=== PATIENT | female | born 1970 | race African-American/Black ===

== ENCOUNTER 2016-10-22 17:22 | Emergency (ER) | payer OTHER ==
[2016-10-22] MEDS ORDERED: Ketorolac Tromethamine 30 MG/ML VIAL ONE (17:41)
[2016-10-22 17:56] LABS: #Basophils 0.1 thou/uL (0.0-0.2); #Eosinphils 0.2 thou/uL (0.0-0.7); #Lymphocytes 2.5 thou/uL (1.20-3.40); #Monocytes 0.7 thou/uL (0.11-0.59); #Neutrophils 5.7 thou/uL (1.40-6.50); %Basophils 1.3 % (0.0-1.0); %Eosinophils 2.1 % (0.0-10.0); %Monocytes 7.4 % (0.0-10.0); Hematocrit 41.4 % (36.0-47.0); Mean Platelet Volume 7.2 fL (7.4-10.4); Red Blood Cell (RBC) Count 4.78 mill/uL (4.20-5.40); White Blood Cell (WBC) Count 9.2 thou/uL (4.8-10.8)
[2016-10-22 18:13] LABS: ALT (SGPT) 18 U/L (0-55); AST (SGOT) 18 U/L (5-34); Alkaline Phosphatase 64 U/L (40-150); Anion Gap 12 mmol/L (10-20); BUN (Urea Nitrogen) 7 mg/dL (7.0-18.7); Bilirubin, Total 0.3 mg/dL (0.2-1.2); Calc. Creatinine Clearance 0 mL/min (70-130); Calcium 9.4 mg/dL (7.8-10.44); Carbon Dioxide 25 mmol/L (22-29); Chloride 106 mmol/L (98-107); Estimated GFR-MDRD Greater than 90; Globulin 2.5 g/dL (2.4-3.5); Protein, Total 6.2 g/dL (6.0-8.3)
[2016-10-22] MEDS ORDERED: Potassium Chloride 20 MEQ TAB ONE (18:21)
[2016-10-22 18:32] LABS: Bilirubin Negative (Negative); Blood, Urine Negative (Negative); Glucose, Urine (Dipstick) Negative (Negative); Ketone, Urine Negative (Negative); Nitrite Negative (Negative); Protein, Urine (Dipstick) Negative (Neg-Trace); Urobilinogen 0.2 mg/dL (0.2-1.0)
== END 2016-10-22 18:40 | disposition home or self-care (01) ==
LOC: BURERS 17:22
DX: R00.2 Palpitations (principal); M25.512 Pain in left shoulder; G89.29 Other chronic pain; I10 Essential (primary) hypertension; K21.9 Gastro-esophageal reflux disease without esophagitis; J45.909 Unspecified asthma, uncomplicated; F41.9 Anxiety disorder, unspecified; F32.9 Major depressive disorder, single episode, unspecified; F17.210 Nicotine dependence, cigarettes, uncomplicated; Z79.899 Other long term (current) drug therapy
CPT/HCPCS: 80053; 81003; 84443; 85025; 96374; J1885

== ENCOUNTER 2016-10-30 06:38 | Emergency (ER) | payer OTHER | END 2016-10-30 07:02 | disposition home or self-care (01) | LOC: BURERS 06:38 | DX: G44.209 Tension-type headache, unspecified, not intractable (principal); I10 Essential (primary) hypertension; F17.210 Nicotine dependence, cigarettes, uncomplicated | CPT/HCPCS: 99283 ==

== ENCOUNTER 2016-12-18 12:17 | Emergency (ER) | payer OTHER ==
[2016-12-18] MEDS ORDERED: Ketorolac Tromethamine 60 MG/2 ML VIAL ONE (12:34)
== END 2016-12-18 12:48 | disposition home or self-care (01) ==
LOC: BURERS 12:17
DX: S76.911A Strain of unspecified muscles, fascia and tendons at thigh level, right thigh, initial encounter (principal); I10 Essential (primary) hypertension; J45.909 Unspecified asthma, uncomplicated; K21.9 Gastro-esophageal reflux disease without esophagitis; F41.9 Anxiety disorder, unspecified; F32.9 Major depressive disorder, single episode, unspecified; F17.210 Nicotine dependence, cigarettes, uncomplicated; Z79.899 Other long term (current) drug therapy; X58.XXXA Exposure to other specified factors, initial encounter
CPT/HCPCS: J1885

== ENCOUNTER 2017-01-05 13:10 | Outpatient (CLI) | payer OTHER ==
[2017-01-05 18:03] LABS: HBCM Index 0.12 S/CO (0-0.79); HBSAg Index 0.57 S/CO (0-0.99); HIV (1/2) Antibody/Antigen Non-Reactive (NonReactive); HIV 1/2 INDEX 0.26 S/CO (<1.00); Hep A IgM AB Non-Reactive (NonReactive); Hep A IgM S/CO 0.17 S/CO (0-0.79); Hep B Surf Ag Non-Reactive S/CO (NonReactive); Hep C IgG Ab Non-Reactive (NonReactive); Hep C Index 0.11 S/CO (0-0.79); Hepatitis B Core IGM Abs Non-Reactive (NonReactive)
== END 2017-01-05 13:11 ==
LOC: HPCALD 13:10
PROVIDERS: ATTEND Family Medicine
DX: Z12.4 Encounter for screening for malignant neoplasm of cervix (principal); N76.0 Acute vaginitis; Z72.51 High risk heterosexual behavior
CPT/HCPCS: 36415; 80074; 86592; 87389; 87480; 87491; 87510; 87591; 87660

== ENCOUNTER 2017-02-04 11:03 | Outpatient (CLI) | payer OTHER ==
[2017-02-04 12:22] LABS: ALT (SGPT) 21 U/L (8-55); AST (SGOT) 20 U/L (5-34); Albumin 3.8 g/dL (3.5-5.0); Alkaline Phosphatase 65 U/L (40-150); Bilirubin, Direct 0.2 mg/dL (0.1-0.3); Bilirubin, Total 0.4 mg/dL (0.2-1.2)
== END 2017-02-04 11:04 | disposition home or self-care (01) ==
LOC: HPCALD 11:03
PROVIDERS: ATTEND Family Medicine
DX: R10.13 Epigastric pain (principal)
CPT/HCPCS: 36415; 80076

== ENCOUNTER 2017-03-02 13:16 | Emergency (ER) | payer OTHER ==
[2017-03-02] MEDS ORDERED: Ketorolac Tromethamine 60 MG/2 ML VIAL ONE (14:26)
[2017-03-02] MEDS ORDERED: HYDROcodone/Acetaminophen 10/325 mg Tablet ONE (14:26)
--- NOTE | 2017-03-02 18:09 | RAD ---
RIGHT HIP TWO VIEWS 03/02/17 Comparison is made with the prior study dated 06/28/14. There has been no significant interval change. There is no sign of fracture or area of bony destruct ion. The hip joint is normal in width and the articular surfaces are smooth. The adjacent pubic ring appears intact. There are some degenerative changes in the right SI joint. IMPRESSION: No acute bony findings. Exam essentially unchanged from 2014. POS: HOME
== END 2017-03-02 14:55 | disposition home or self-care (01) ==
LOC: BURERS 13:16
DX: M25.551 Pain in right hip (principal); I10 Essential (primary) hypertension; M19.90 Unspecified osteoarthritis, unspecified site; J45.909 Unspecified asthma, uncomplicated; K21.9 Gastro-esophageal reflux disease without esophagitis; F41.9 Anxiety disorder, unspecified; F31.9 Bipolar disorder, unspecified; F17.210 Nicotine dependence, cigarettes, uncomplicated; Z79.899 Other long term (current) drug therapy
CPT/HCPCS: 96372; J1885

== ENCOUNTER 2017-04-12 09:51 | Outpatient (CLI) | payer OTHER ==
[2017-04-12 18:06] LABS: HBCM Index 0.08 S/CO (0-0.79); HBSAg Index 0.52 S/CO (0-0.99); HIV (1/2) Antibody/Antigen Non-Reactive (NonReactive); Hep A IgM AB Non-Reactive (NonReactive); Hep A IgM S/CO 0.18 S/CO (0-0.79); Hep B Surf Ag Non-Reactive S/CO (NonReactive); Hep C IgG Ab Non-Reactive (NonReactive); Hep C Index 0.14 S/CO (0-0.79); Hepatitis B Core IGM Abs Non-Reactive (NonReactive)
== END 2017-04-12 09:52 | disposition home or self-care (01) ==
LOC: HPCALD 09:51
PROVIDERS: ATTEND Family Medicine
DX: Z72.51 High risk heterosexual behavior (principal)
CPT/HCPCS: 36415; 80074; 86592; 87389

== ENCOUNTER 2017-04-13 16:49 | Outpatient (CLI) | payer OTHER | END 2017-04-13 16:50 | disposition home or self-care (01) | LOC: HPCALD 16:49 | PROVIDERS: ATTEND Family Medicine | DX: N39.0 Urinary tract infection, site not specified (principal) | CPT/HCPCS: 87086 ==

== ENCOUNTER 2017-07-08 10:28 | Emergency (ER) | payer OTHER ==
[2017-07-08] MEDS ORDERED: methylPREDNISolone Acetate 40 mg/ml Vial ONE (11:59)
[2017-07-08] MEDS ORDERED: Azithromycin 250 MG TAB ONE (11:59)
--- NOTE | 2017-07-08 12:09 | RAD ---
TWO VIEWS OF THE CHEST: INDICATIONS: Cough. COMPARISON: Prior exam dated 09/02/2015. FINDINGS: The lungs are clear. The cardiomediastinal silhouette is normal. No acute osseous abnormality is e vident. There is spondylosis of the thoracic spine that appears similar. IMPRESSION: No acute cardiopulmonary abnormality. POS: [facility]
== END 2017-07-08 12:25 | disposition home or self-care (01) ==
LOC: BURERS 10:28
DX: J20.9 Acute bronchitis, unspecified (principal); I10 Essential (primary) hypertension; K21.9 Gastro-esophageal reflux disease without esophagitis; J45.909 Unspecified asthma, uncomplicated; F41.9 Anxiety disorder, unspecified; F32.9 Major depressive disorder, single episode, unspecified; F17.210 Nicotine dependence, cigarettes, uncomplicated
CPT/HCPCS: 71020; 94640; J1030; J7620

== ENCOUNTER 2017-08-03 17:09 | Outpatient (CLI) | payer OTHER ==
--- NOTE | 2017-08-04 07:35 | RAD ---
CHEST TWO VIEWS 08/03/17 Comparison is made with the 07/08/17 study. The heart remains normal in size and the lungs are clear. No infiltrate or other signs of pneumonia w ere found. There is no effusion, mediastinal abnormality or other acute change. Degenerative changes are rather prominent in the spine for age. IMPRESSION: No acute thoracic finding. POS: HOME
== END 2017-08-03 17:10 | disposition home or self-care (01) ==
LOC: BURRAD 17:09
PROVIDERS: ATTEND Family Medicine
DX: R09.3 Abnormal sputum (principal)
CPT/HCPCS: 71020

== ENCOUNTER 2017-09-26 16:16 | Emergency (ER) | payer OTHER ==
[2017-09-26] MEDS ORDERED: Morphine 4 MG/ML Carpuject ONE (16:40)
[2017-09-26 16:59] LABS: Bilirubin Negative (Negative); Blood, Urine Negative (Negative); Clarity Clear (Clear); Glucose, Urine (Dipstick) Negative (Negative); Leukocyte Trace (Negative); Nitrite Negative (Negative); Protein, Urine (Dipstick) Negative (Neg-Trace); Specific Gravity, Urine 1.015 (1.005-1.030); Urobilinogen 0.2 mg/dL (0.2-1.0)
[2017-09-26 17:05] LABS: Bacteria/HPF Rare-Few HPF (None Seen); RBC/HPF 0-3 HPF (0-3); Squamous Epithelial 0-3 HPF (0-3); WBC/HPF 0-3 HPF (0-3)
[2017-09-26 17:08] LABS: Hemoglobin 16.1 g/dL (12.0-16.0); Mean Corpuscular HGB CONC 34.6 g/dL (32.0-36.0); Mean Corpuscular Hemoglobin 29.8 pg (27.0-31.0); Mean Corpuscular Volume 86.3 fl (81.0-99.0); Mean Platelet Volume 7.1 fL (7.4-10.4); Platelet Count 267 thou/uL (130-400); RBC Distribution Width 11.8 % (11.5-14.5); Red Blood Cell (RBC) Count 5.38 mill/uL (4.20-5.40); White Blood Cell (WBC) Count 8.9 thou/uL (4.8-10.8)
[2017-09-26 17:16] LABS: ALT (SGPT) 21 U/L (8-55); AST (SGOT) 18 U/L (5-34); Albumin 3.7 g/dL (3.5-5.0); Alkaline Phosphatase 76 U/L (40-150); Anion Gap 12 mmol/L (10-20); BUN (Urea Nitrogen) 10 mg/dL (7.0-18.7); Bilirubin, Total 0.2 mg/dL (0.2-1.2); Calc. Creatinine Clearance 0 mL/min (70-130); Calcium 9.8 mg/dL (7.8-10.44); Carbon Dioxide 27 mmol/L (22-29); Chloride 105 mmol/L (98-107); Estimated GFR-MDRD Greater than 90; Globulin 2.4 g/dL (2.4-3.5); Glucose 85 mg/dL (70-105); Lipase 23 U/L (8-78); Potassium 3.3 mmol/L (3.5-5.1); Protein, Total 6.1 g/dL (6.0-8.3); Sodium 141 mmol/L (136-145)
[2017-09-26 17:24] LABS: #Basophils 0.1 thou/uL (0.0-0.2); #Eosinphils 0.1 thou/uL (0.0-0.7); #Lymphocytes 2.9 thou/uL (1.20-3.40); #Monocytes 0.7 thou/uL (0.11-0.59); %Basophils 1.3 % (0.0-1.0); %Eosinophils 1.3 % (0.0-10.0); %Lymphocytes 32.6 % (21.0-51.0); %Monocytes 8.1 % (0.0-10.0); %Neutrophils 56.6 % (42.0-75.0); Band 3 % (5-11); Eosinophils 4 % (0-10); Lymphocytes 22 % (21-51); MDiff Complete? YES; Monocytes 13 % (0-10); Neutrophil 56 % (42-75); Reactive Lymphocytes 1 % (0-10)
[2017-09-26] MEDS ORDERED: Ketorolac Tromethamine 30 MG/ML VIAL ONE (18:16)
[2017-09-26] MEDS ORDERED: Amoxicillin/Potassium Clav 875 MG TAB ONE (18:16)
--- NOTE | 2017-09-26 21:50 | CT ---
CT ABDOMEN AND PELVIS WITH CONTRAST: Date: 09-26-[address] of the abdomen and pelvis was performed for evaluation following bouts of abdominal pain wi th diarrhea and rectal bleeding. Axial slices were acquired. Coronal and sagittal reconstructions wer e subsequently done. FINDINGS: The lung bases are clear. The liver is a little generous in size but otherwise appears normal. The sp da, pancreas, adrenal glands, kidneys, and abdominal aorta appear normal. 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 There is a prior cholecystectomy. There is no dilation of bowel to suggest obstruction. Thickness of the bowel wall of the lower descen ding through sigmoid colon is perhaps slightly increased, an equivocal finding at best. There is no p ericolonic stranding. No free air or free fluid was seen. The appendix appears normal. Incidentally n oted was a small fat filled umbilical hernia. CT of the pelvis showed no adnexal masses, inflammatory changes, or free fluid. The bony structures s howed no acute findings. IMPRESSION: Equivocal minimal thickening of the bowel wall of the distal left colon. This may be the patient's no rmal state or could be correlated with mild colitis. There were no acute findings otherwise. POS: HOME
== END 2017-09-26 18:36 | disposition home or self-care (01) ==
LOC: BURERS 16:16
DX: K52.9 Noninfective gastroenteritis and colitis, unspecified (principal); K64.4 Residual hemorrhoidal skin tags; I10 Essential (primary) hypertension; M19.90 Unspecified osteoarthritis, unspecified site; K21.9 Gastro-esophageal reflux disease without esophagitis; J45.909 Unspecified asthma, uncomplicated; F41.9 Anxiety disorder, unspecified; F32.9 Major depressive disorder, single episode, unspecified; F17.210 Nicotine dependence, cigarettes, uncomplicated
CPT/HCPCS: 74177; 80053; 81003; 81015; 82274; 83690; 85025; 96361; 96374; 96375; A4216; J1885; J2270

== ENCOUNTER 2017-09-27 16:44 | Emergency (ER) | payer OTHER ==
[2017-09-27] MEDS ORDERED: HYDROcodone/Acetaminophen 10/325 mg Tablet ONE (17:04)
[2017-09-27 17:19] LABS: Hemoglobin 15.2 g/dL (12.0-16.0); Mean Corpuscular HGB CONC 35.2 g/dL (32.0-36.0); Mean Corpuscular Hemoglobin 30.3 pg (27.0-31.0); Mean Corpuscular Volume 86.1 fl (81.0-99.0); Mean Platelet Volume 6.9 fL (7.4-10.4); Platelet Count 265 thou/uL (130-400); RBC Distribution Width 12.1 % (11.5-14.5); Red Blood Cell (RBC) Count 5.02 mill/uL (4.20-5.40); White Blood Cell (WBC) Count 6.8 thou/uL (4.8-10.8)
[2017-09-27 17:32] LABS: Anion Gap 13 mmol/L (10-20); BUN (Urea Nitrogen) 7 mg/dL (7.0-18.7); Calc. Creatinine Clearance 0 mL/min (70-130); Calcium 10.6 mg/dL (7.8-10.44); Carbon Dioxide 32 mmol/L (22-29); Chloride 103 mmol/L (98-107); Estimated GFR-MDRD Greater than 90; Glucose 95 mg/dL (70-105); Potassium 4.4 mmol/L (3.5-5.1); Sodium 144 mmol/L (136-145)
[2017-09-27 17:35] LABS: %Eosinophils 2.3 % (0.0-10.0); %Lymphocytes 32.4 % (21.0-51.0); %Monocytes 6.5 % (0.0-10.0)
[2017-09-27 17:36] LABS: #Eosinphils 0.2 thou/uL (0.0-0.7); #Lymphocytes 2.2 thou/uL (1.20-3.40); #Monocytes 0.4 thou/uL (0.11-0.59); #Neutrophils 3.9 thou/uL (1.40-6.50); %Basophils 0.7 % (0.0-1.0); Eosinophils 4 % (0-10); Lymphocytes 27 % (21-51); MDiff Complete? YES; Monocytes 17 % (0-10); Neutrophil 52 % (42-75)
--- NOTE | 2017-09-27 21:19 | RAD ---
ACUTE ABDOMEN SERIES 09/27/17 Supine and erect films show no free air beneath the diaphragm. The gas pattern is normal and there is no distended bowel to suggest obstruction. There is actually an abundance of fecal material in the c olon. Pelvic calcifications appear to be phleboliths. Clips are noted in the right upper quadrant fro m a prior cholecystectomy. A chest film in the series shows the heart to be upper normal in size. The lungs are clear. There are no effusions. IMPRESSION: Mild increase in stool but no acute findings otherwise. POS: HOME
== END 2017-09-27 18:05 | disposition home or self-care (01) ==
LOC: BURERS 16:44
DX: K52.9 Noninfective gastroenteritis and colitis, unspecified (principal); I10 Essential (primary) hypertension; K21.9 Gastro-esophageal reflux disease without esophagitis; J45.909 Unspecified asthma, uncomplicated; F17.210 Nicotine dependence, cigarettes, uncomplicated; Z79.899 Other long term (current) drug therapy
CPT/HCPCS: 36415; 74022; 80048; 85025

== ENCOUNTER 2018-02-12 11:41 | Emergency (ER) | payer OTHER ==
[2018-02-12] MEDS ORDERED: Ketorolac Tromethamine 30 MG/ML VIAL ONE (12:39)
[2018-02-12] MEDS ORDERED: Lidocaine Viscous Sol 2% 15 ml UD Cup ONE (12:42)
[2018-02-12 12:44] LABS: %Basophils 0.9 % (0.0-1.0); %Eosinophils 0.8 % (0.0-10.0); %Lymphocytes 19.5 % (21.0-51.0); %Monocytes 5.5 % (0.0-10.0); %Neutrophils 73.3 % (42.0-75.0); Hemoglobin 15.6 g/dL (12.0-16.0); Manual Diff?? YES; Mean Corpuscular Hemoglobin 29.6 pg (27.0-31.0); Mean Corpuscular Volume 82.3 fL (81.0-99.0); Mean Platelet Volume 6.4 fL (7.4-10.4); Platelet Count 273 thou/uL (130-400); RBC Distribution Width 11.8 % (11.5-14.5); Red Blood Cell (RBC) Count 5.26 mill/uL (4.20-5.40); White Blood Cell (WBC) Count 9.5 thou/uL (4.8-10.8)
[2018-02-12 12:45] LABS: #Basophils 0.1 thou/uL (0.0-0.2); #Eosinphils 0.1 thou/uL (0.0-0.7); #Monocytes 0.5 thou/uL (0.11-0.59); MDiff Complete? YES
[2018-02-12 12:46] LABS: #Lymphocytes 1.9 thou/uL (1.20-3.40)
[2018-02-12 12:51] LABS: ALT (SGPT) 18 U/L (8-55); AST (SGOT) 17 U/L (5-34); Albumin 3.8 g/dL (3.5-5.0); Alkaline Phosphatase 60 U/L (40-150); Anion Gap 11 mmol/L (10-20); BUN (Urea Nitrogen) 7 mg/dL (7.0-18.7); Bilirubin, Total 0.4 mg/dL (0.2-1.2); Calc. Creatinine Clearance 0 mL/min (70-130); Calcium 9.7 mg/dL (7.8-10.44); Carbon Dioxide 24 mmol/L (22-29); Chloride 107 mmol/L (98-107); Estimated GFR-MDRD Greater than 90; Globulin 2.3 g/dL (2.4-3.5); Glucose 110 mg/dL (70-105); Lipase 30 U/L (8-78); Potassium 3.3 mmol/L (3.5-5.1); Protein, Total 6.1 g/dL (6.0-8.3); Sodium 139 mmol/L (136-145)
[2018-02-12 12:53] LABS: Bilirubin Negative (Negative); Blood, Urine Negative (Negative); Clarity Clear (Clear); Glucose, Urine (Dipstick) Negative (Negative); Leukocyte Negative (Negative); Nitrite Negative (Negative); Protein, Urine (Dipstick) Negative (Neg-Trace); Specific Gravity, Urine 1.015 (1.005-1.030); Urobilinogen 0.2 mg/dL (0.2-1.0)
[2018-02-12] MEDS ORDERED: Dicyclomine 20 MG TAB ONE (14:25)
--- NOTE | 2018-02-12 23:45 | CT ---
CT ABDOMEN AND PELVIS WITH CONTRAST: Date: 02-12-18 Technique: Spiral CT of the abdomen and pelvis was performed for evaluation of abdominal pain and sonya rrhea. Axial slices were acquired and then coronal and sagittal reconstructions were done. FINDINGS: The lung bases are clear. The liver is mildly generous in size but otherwise appears normal internall y. The spleen, pancreas, adrenal glands, kidneys and abdominal aorta showed no acute findings. There has been a prior cholecystectomy. The bowel is nondistended with no sign of obstruction. No inflammatory changes are seen around bowel. The appendix appears normal. One might wonder about some slight thickening of the wall of the right colon, but the finding is equivocal. A few diverticula are seen without findings of diverticulitis. CT of the pelvis shows no pelvic masses, fluid collections, or inflammatory changes. IMPRESSION: 1. Mild hepatic enlargement. 2. No gross bowel findings. Thickness of right colonic wall upper normal but not definitely thick. No inflammatory changes otherwise. 3. Normal appearing appendix. POS: HOME
== END 2018-02-12 14:30 | disposition home or self-care (01) ==
LOC: BURERS 11:41
DX: K52.9 Noninfective gastroenteritis and colitis, unspecified (principal); I10 Essential (primary) hypertension; K21.9 Gastro-esophageal reflux disease without esophagitis; J45.909 Unspecified asthma, uncomplicated; F32.9 Major depressive disorder, single episode, unspecified; F41.9 Anxiety disorder, unspecified; F17.210 Nicotine dependence, cigarettes, uncomplicated; Z79.899 Other long term (current) drug therapy
CPT/HCPCS: 74177; 80053; 81003; 83690; 85025; 96361; 96374; J1885

== ENCOUNTER 2018-05-29 12:20 | Emergency (ER) | payer OTHER ==
[~2018-05-29 12:20] MED LIST: Iopamidol 370 76% 100 ML VIAL ONE
[2018-05-29 13:08] LABS: #Basophils 0.1 thou/uL (0.0-0.2); #Eosinphils 0.1 thou/uL (0.0-0.7); Hemoglobin 15.3 g/dL (12.0-16.0); Mean Platelet Volume 7.7 fL (7.4-10.4); White Blood Cell (WBC) Count 7.5 thou/uL (4.8-10.8)
[2018-05-29 13:12] LABS: #Lymphocytes 1.8 thou/uL (1.20-3.40); #Monocytes 0.5 thou/uL (0.11-0.59); %Eosinophils 1.5 % (0.0-10.0); %Lymphocytes 24.5 % (21.0-51.0); %Monocytes 6.7 % (0.0-10.0); %Neutrophils 66.3 % (42.0-75.0); Mean Corpuscular HGB CONC 34.3 g/dL (32.0-36.0); Mean Corpuscular Hemoglobin 29.3 pg (27.0-31.0); Mean Corpuscular Volume 85.6 fL (78.0-98.0); Platelet Count 300 thou/uL (130-400); Red Blood Cell (RBC) Count 5.21 mill/uL (4.20-5.40)
[2018-05-29] MEDS ORDERED: Famotidine In NaCl 20 mg/50 ml Premix Bag ONE (13:12)
[2018-05-29 13:21] LABS: Bilirubin Negative (Negative); Blood, Urine Negative (Negative); Clarity Clear (Clear); Glucose, Urine (Dipstick) Negative (Negative); Leukocyte Negative (Negative); Nitrite Negative (Negative); Protein, Urine (Dipstick) Negative (Neg-Trace); Specific Gravity, Urine 1.025 (1.005-1.030); Urobilinogen 0.2 mg/dL (0.2-1.0)
[2018-05-29 13:24] LABS: ALT (SGPT) 19 U/L (8-55); AST (SGOT) 16 U/L (5-34); Alkaline Phosphatase 74 U/L (40-150); Anion Gap 13 mmol/L (10-20); BUN (Urea Nitrogen) 8 mg/dL (7.0-18.7); Bilirubin, Total Less than 0.2 mg/dL (0.2-1.2); Calc. Creatinine Clearance 0 mL/min (70-130); Calcium 10.3 mg/dL (7.8-10.44); Carbon Dioxide 24 mmol/L (22-29); Chloride 107 mmol/L (98-107); Estimated GFR-MDRD Greater than 90; Globulin 2.4 g/dL (2.4-3.5); Glucose 177 mg/dL (70-105); Lipase 34 U/L (8-78); Protein, Total 6.4 g/dL (6.0-8.3); Sodium 141 mmol/L (136-145)
[2018-05-29 13:25] LABS: Troponin I Less than 0.010 ng/mL (< 0.028)
[2018-05-29] MEDS ORDERED: Potassium Chloride 20 MEQ TAB ONE (13:27)
--- NOTE | 2018-05-29 15:21 | CT ---
CT ABDOMEN AND PELVIS WITH CONTRAST: Date: 05-29-[address] of the abdomen and pelvis was performed and compared with the prior study of 02-12-18. I als o compared with prior studies done earlier this year. Axial slices were acquired after giving IV contrast. Oral contrast was withheld by request. Coronal a nd sagittal reconstructions were done afterwards. FINDINGS: The lung bases are clear. The liver is mildly generous in size but unchanged over the interval. No di lated ducts or space occupying disease was seen. There has been a prior cholecystectomy. The spleen i s normal in size. The pancreas and adrenal glands appear normal. The kidneys show no mass or hydronep hrosis. 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 The aorta is tortuous but shows no aneurysm. A few of the loops of proximal small bowel are fluid filled and may have minimally thick thomas. If ab normal, the findings would be what one might see in mild enteritis. The findings are not overly strik ing. The remainder of the small bowel and colon showed no acute abnormality. The appendix appears nor mal. There are no inflammatory changes around bowel. No free air or free fluid was seen. CT of the pelvis showed no adnexal masses, fluid collections, or inflammatory changes. There were no acute findings in the bony structures. IMPRESSION: 1. At most, mild prominence of a few fluid filled loops of proximal small bowel, a nonspecific findin g. This is sometimes seen in mild enteritis. 2. Hepatic size mildly enlarged but unchanged over time. 3. Overall, changes of the interval are minimal. POS: HOME
== END 2018-05-29 15:15 | disposition home or self-care (01) ==
LOC: BURERS 12:20
DX: R10.10 Upper abdominal pain, unspecified (principal); R19.7 Diarrhea, unspecified; G89.29 Other chronic pain; M54.9 Dorsalgia, unspecified; I10 Essential (primary) hypertension; K21.9 Gastro-esophageal reflux disease without esophagitis; J45.909 Unspecified asthma, uncomplicated; F32.9 Major depressive disorder, single episode, unspecified; F41.9 Anxiety disorder, unspecified; F17.210 Nicotine dependence, cigarettes, uncomplicated; Z79.899 Other long term (current) drug therapy
CPT/HCPCS: 74177; 80053; 81003; 82553; 83690; 84484; 85025; 93005; 96365; 96375; A4216

== ENCOUNTER 2018-09-02 11:55 | Outpatient (CLI) | payer OTHER ==
--- NOTE | 2018-09-02 14:26 | RAD ---
ABDOMEN 2 VIEWS: HISTORY: Abdomen pain. FINDINGS: Gas and stool over the colon and rectum. No differential air fluid levels or evidence of free subdia phragmatic gas. Metallic clips overlie the gallbladder fossa. Phleboliths overlie the pelvis. IMPRESSION: 1. Nonspecific bowel gas pattern. 2. Status post cholecystectomy. POS: [facility]
== END 2018-09-02 11:56 | disposition home or self-care (01) ==
LOC: BURRAD 11:55
PROVIDERS: ATTEND Family Medicine
DX: R10.84 Generalized abdominal pain (principal); Z90.49 Acquired absence of other specified parts of digestive tract
CPT/HCPCS: 74019

== ENCOUNTER 2018-12-19 17:59 | Emergency (ER) | payer OTHER ==
[2018-12-19 18:28] LABS: Clarity Clear (Clear); Leukocyte Negative (Negative)
[2018-12-19 18:29] LABS: Bilirubin Negative (Negative); Blood, Urine Negative (Negative); Glucose, Urine (Dipstick) Negative (Negative); Nitrite Negative (Negative); Pregnancy Test - Urine (BHCG) Negative (Negative); Pregu Control Background? CLEAR/WHITE (CLR/WHITE); Pregu Control Bar Appear? YES (CONTROL BAR); Protein, Urine (Dipstick) Negative (Neg-Trace); Urobilinogen 0.2 mg/dL (0.2-1.0)
== END 2018-12-19 18:42 | disposition home or self-care (01) ==
LOC: BURERS 17:59
DX: R10.31 Right lower quadrant pain (principal); I10 Essential (primary) hypertension; K21.9 Gastro-esophageal reflux disease without esophagitis; J45.909 Unspecified asthma, uncomplicated; F41.9 Anxiety disorder, unspecified; F32.9 Major depressive disorder, single episode, unspecified; F17.210 Nicotine dependence, cigarettes, uncomplicated
CPT/HCPCS: 81003; 81025; 99284

== ENCOUNTER 2019-03-29 08:30 | Outpatient (CLI) | payer OTHER ==
--- NOTE | 2019-03-29 13:12 | ULT ---
US Abdominal: 03/29/2019 12:00 AM CLINICAL HISTORY: Dog bite. Initial encounter. Abdominal and pelvic pain. STUDY: Complete abdominal ultrasound COMPARISON: None. FINDINGS: Liver: Size: Normal. Echogenicity: Normal. Contour: Smooth. Mass: None. Common bile duct: 6 mm Gallbladder: Absent Pancreas: Head, body, and tail appear normal. Inferior vena cava: Normal in caliber Aorta: Normal in caliber Spleen: No focal lesions. Spleen measuring 9.8 cm in length. Right kidney: No pelvicalyceal dilatation. Right kidney measuring 12.1 cm in length. Left kidney: No pelvicalyceal dilatation. Right kidney measuring 12.5 cm in length. IMPRESSION: Unremarkable exam.
--- NOTE | 2019-03-29 13:13 | ULT ---
EXAM: Pelvic ultrasound HISTORY: Pelvic and adnexal pain COMPARISON: None TECHNIQUE: Multiple grayscale and color Doppler images were obtained in a transabdominal pelvic ultra sound. FINDINGS: CERVIX: No evidence of nabothian cysts. UTERUS: Normal in size without focal abnormality. ENDOMETRIAL STRIPE: 5 mm. No free fluid is seen in the pelvis. RIGHT OVARY: Not definitely visualized. LEFT OVARY: Not definitely visualized. IMPRESSION: No significant pelvic abnormality on this limited exam.
== END 2019-03-29 08:31 | disposition home or self-care (01) ==
LOC: BURULT 08:30
PROVIDERS: ATTEND Family Medicine
DX: R10.2 Pelvic and perineal pain (principal); T14.8XXA Other injury of unspecified body region, initial encounter; W54.0XXA Bitten by dog, initial encounter
CPT/HCPCS: 76700; 76856

== ENCOUNTER 2019-05-13 06:50 | Emergency (ER) | payer OTHER | END 2019-05-13 07:30 | disposition home or self-care (01) | LOC: BURERS 06:50 | DX: R59.0 Localized enlarged lymph nodes (principal); I10 Essential (primary) hypertension; K21.9 Gastro-esophageal reflux disease without esophagitis; J45.909 Unspecified asthma, uncomplicated; F41.9 Anxiety disorder, unspecified; F32.9 Major depressive disorder, single episode, unspecified; F17.210 Nicotine dependence, cigarettes, uncomplicated; Z79.899 Other long term (current) drug therapy | CPT/HCPCS: 99283 ==

== ENCOUNTER 2019-07-12 14:24 | Emergency (ER) | payer OTHER ==
[2019-07-12 15:01] LABS: Bilirubin Negative (Negative); Blood, Urine Trace (Negative); Clarity Clear (Clear); Glucose, Urine (Dipstick) Negative (Negative); Leukocyte Small (Negative); Nitrite Negative (Negative); Protein, Urine (Dipstick) Negative (Neg-Trace); Urobilinogen 0.2 mg/dL (Less than 2)
[2019-07-12 15:03] LABS: Bacteria/HPF 1+ HPF (None Seen); RBC/HPF 0-3 HPF (0-3); Squamous Epithelial 0-3 HPF (0-3)
== END 2019-07-12 15:15 | disposition home or self-care (01) ==
LOC: BURERS 14:24
DX: N39.0 Urinary tract infection, site not specified (principal); F12.10 Cannabis abuse, uncomplicated; F17.210 Nicotine dependence, cigarettes, uncomplicated; J34.89 Other specified disorders of nose and nasal sinuses; K21.9 Gastro-esophageal reflux disease without esophagitis; J45.909 Unspecified asthma, uncomplicated; I10 Essential (primary) hypertension; M19.90 Unspecified osteoarthritis, unspecified site; F41.9 Anxiety disorder, unspecified; F32.9 Major depressive disorder, single episode, unspecified; Z79.899 Other long term (current) drug therapy
CPT/HCPCS: 81003; 81015; 99284

== ENCOUNTER 2019-11-24 07:47 | Emergency (ER) | payer OTHER ==
[2019-11-24 08:50] LABS: Bilirubin Negative (Negative); Blood, Urine Negative (Negative); Clarity Clear (Clear); Glucose, Urine (Dipstick) Negative (Negative); Leukocyte Trace (Negative); Nitrite Negative (Negative); Protein, Urine (Dipstick) Negative (Neg-Trace); Urobilinogen 0.2 mg/dL (Less than 2)
[2019-11-24 08:51] LABS: RBC/HPF None Seen HPF (0-3); WBC/HPF 0-3 HPF (0-3)
[2019-11-24 08:52] LABS: Bacteria/HPF Rare-Few HPF (None Seen); Broad Cast None Seen LPF (None Seen); Calcium Oxalate Crystals None Seen HPF (None Seen); Cellular Cast None Seen LPF (None Seen); Epithelial Cast None Seen LPF (None Seen); Fatty Cast None Seen LPF (None Seen); Mucous/LPF None Seen LPF (<2+); Other Casts None Seen LPF (None Seen); Oval Fat Bodies/HPF None Seen HPF (None Seen); Red Blood Cell Cast None Seen LPF (None Seen); Renal Epithelial None Seen HPF (None Seen); Sperm/HPF None Seen HPF (None Seen); Squamous Epithelial 0-3 HPF (0-3); Transitional Epithelial None Seen HPF (None Seen); Trichomonas/HPF None Seen HPF (None Seen); Triple Phosphate Crystal None Seen HPF (None Seen); Unclassified Crystals None Seen HPF (None Seen); Waxy Cast None Seen LPF (None Seen); White Blood Cell Cast None Seen LPF (None Seen); Yeast-Budding None Seen HPF (None Seen); Yeast-Hyphae None Seen HPF (None Seen)
== END 2019-11-24 08:53 | disposition home or self-care (01) ==
LOC: BURERS 07:47
DX: M54.6 Pain in thoracic spine (principal); R30.0 Dysuria; K21.9 Gastro-esophageal reflux disease without esophagitis; J45.909 Unspecified asthma, uncomplicated; I10 Essential (primary) hypertension; M19.90 Unspecified osteoarthritis, unspecified site; F41.9 Anxiety disorder, unspecified; F32.9 Major depressive disorder, single episode, unspecified; F17.210 Nicotine dependence, cigarettes, uncomplicated
CPT/HCPCS: 81003; 81015; 99283

== ENCOUNTER 2020-02-18 11:54 | Emergency (ER) | payer OTHER ==
[2020-02-18] MEDS ORDERED: Morphine 4 MG/ML VIAL ONE (13:13)
[2020-02-18] MEDS ORDERED: Ondansetron PF 4 MG/2 ML Vial ONE ×2 (13:14→16:58)
[2020-02-18 13:30] LABS: #Basophils 0.1 thou/uL (0.0-0.2); #Eosinphils 0.1 thou/uL (0.0-0.7); #Lymphocytes 1.8 thou/uL (1.20-3.40); #Monocytes 0.6 thou/uL (0.11-0.59); #Neutrophils 5.7 thou/uL (1.40-6.50); %Basophils 0.9 % (0.0-1.0); %Eosinophils 1.3 % (0.0-10.0); %Lymphocytes 21.3 % (21.0-51.0); %Monocytes 7.4 % (0.0-10.0); Hemoglobin 15.7 g/dL (12.0-16.0); Mean Corpuscular HGB CONC 31.2 g/dL (32.0-36.0); Mean Corpuscular Hemoglobin 29.3 pg (27.0-31.0); Mean Corpuscular Volume 93.9 fL (78.0-98.0); Mean Platelet Volume 7.7 fL (7.4-10.4); Platelet Count 261 thou/uL (130-400); RBC Distribution Width 12.8 % (11.5-14.5); Red Blood Cell (RBC) Count 5.34 mill/uL (4.20-5.40); White Blood Cell (WBC) Count 8.3 thou/uL (4.8-10.8)
[2020-02-18 13:45] LABS: ALT (SGPT) 15 U/L (8-55); AST (SGOT) 20 U/L (5-34); Albumin 4.4 g/dL (3.5-5.0); Alkaline Phosphatase 87 U/L (40-110); Anion Gap 12 mmol/L (10-20); BUN (Urea Nitrogen) 9 mg/dL (7.0-18.7); Bilirubin, Total 0.5 mg/dL (0.2-1.2); Calc. Creatinine Clearance 0 mL/min (70-130); Calcium 11.1 mg/dL (7.8-10.44); Carbon Dioxide 27 mmol/L (22-29); Chloride 107 mmol/L (98-107); Estimated GFR-MDRD Greater than 90; Globulin 2.5 g/dL (2.4-3.5); Glucose 102 mg/dL (70-105); Lipase 32 U/L (8-78); Potassium 3.7 mmol/L (3.5-5.1); Protein, Total 6.9 g/dL (6.0-8.3); Sodium 142 mmol/L (136-145)
[2020-02-18] MEDS ORDERED: Iopamidol 370 76% 100 ML VIAL ONE (13:47)
[2020-02-18 13:57] LABS: Bilirubin Negative (Negative); Blood, Urine Negative (Negative); Clarity Slightly Cloudy (Clear); Glucose, Urine (Dipstick) Negative (Negative); Leukocyte Negative (Negative); Nitrite Negative (Negative); Protein, Urine (Dipstick) Negative (Neg-Trace); Urobilinogen 0.2 mg/dL (Less than 2)
--- NOTE | 2020-02-18 14:47 | RAD ---
PORTABLE CHEST: Date: 02/18/2020 An AP portable film at 1329 hours is compared with a 01/01/2019 study. The heart size is stable. The lungs are clear and fully inflated. There is no vascular congestion or edema. IMPRESSION: No acute thoracic finding. POS: HOME
--- NOTE | 2020-02-18 16:25 | CT ---
CT ABDOMEN AND PELVIS WITH CONTRAST: Date: 02-18-[address] of the abdomen and pelvis was done for evaluation of abdominal pain. Comparison: 05-29-18 FINDINGS: The lung bases are clear. The liver is mildly enlarged but unchanged over time. No space occupying di sease was seen. The spleen and pancreas were unremarkable in appearance. There has been a prior niraj cystectomy. The kidneys and adrenal glands were unremarkable. The abdominal aorta is normal in size. CT of the pelvis shows no pelvic masses, fluid collections or inflammatory changes. There are degenerative changes throughout the spine with degenerative disc disease in some of the low er thoracic levels. There are also vacuum phenomenon in each S1 joint that is presumed to be due to d egenerative change. There is no dilation of bowel or free air or free fluid. A minimal fat filled umbilical hernia is pre sent as usual. The appendix appears normal. As has been noted on some of the prior studies, some of t he wall of the lower left colon is perhaps a little thicker than elsewhere, but it does not seem to c hange substantially over time. IMPRESSION: Mild hepatomegaly (stable). No acute abdominal or pelvic findings. NOTE: This is this patient's fifth CT abdomen/pelvis since 2018. No findings have been substantial to date. In view of considerations around radiation risk, future imaging might be considered via abdominal ul trasound when possible. Preliminary findings called to [facility] in the ER at 1552 on 02-18-2020. POS: HOME
[2020-02-18] MEDS ORDERED: Acetaminophen 500 MG TAB ONE (16:58)
[2020-02-18] MEDS ORDERED: Lorazepam 2 MG/ML VIAL ONE (17:12)
== END 2020-02-18 18:23 | disposition home or self-care (01) ==
LOC: BURERS 11:54
DX: R11.2 Nausea with vomiting, unspecified (principal); R19.7 Diarrhea, unspecified; Z20.828 Contact with and (suspected) exposure to other viral communicable diseases; K21.9 Gastro-esophageal reflux disease without esophagitis; J45.909 Unspecified asthma, uncomplicated; I10 Essential (primary) hypertension; M19.90 Unspecified osteoarthritis, unspecified site; F41.9 Anxiety disorder, unspecified; F32.9 Major depressive disorder, single episode, unspecified; F17.210 Nicotine dependence, cigarettes, uncomplicated
CPT/HCPCS: 71045; 74177; 80053; 81003; 83605; 83690; 83880; 84484; 85025; 87635; 93005; 96361; 96374; 96375; 96376; J2060; J2270; J2405; Q9967; U0003

== ENCOUNTER 2020-03-25 11:58 | Emergency (ER) | payer OTHER ==
[2020-03-25] MEDS ORDERED: Cyclobenzaprine 10 MG TAB ONE (12:23)
[2020-03-25] MEDS ORDERED: Ketorolac Tromethamine 60 MG/2 ML VIAL ONE (12:23)
[2020-03-25 12:27] LABS: Bilirubin Negative (Negative); Blood, Urine Trace (Negative); Clarity Clear (Clear); Glucose, Urine (Dipstick) Negative (Negative); Ketone, Urine Negative (Negative); Leukocyte Negative (Negative); Nitrite Negative (Negative); Protein, Urine (Dipstick) Negative (Neg-Trace); Urobilinogen 0.2 mg/dL (Less than 2)
[2020-03-25 12:33] LABS: Pregnancy Test - Urine (BHCG) Negative (Negative); Pregu Control Background? CLEAR/WHITE (CLR/WHITE); Pregu Control Bar Appear? YES (CONTROL BAR)
[2020-03-25 12:38] LABS: Bacteria/HPF 1+ HPF (None Seen); RBC/HPF 0-3 HPF (0-3); Squamous Epithelial 0-3 HPF (0-3); WBC/HPF 0-3 HPF (0-3)
== END 2020-03-25 13:00 | disposition home or self-care (01) ==
LOC: BURERS 11:58
DX: M54.42 Lumbago with sciatica, left side (principal); K21.9 Gastro-esophageal reflux disease without esophagitis; J45.909 Unspecified asthma, uncomplicated; I10 Essential (primary) hypertension; M19.90 Unspecified osteoarthritis, unspecified site; F41.9 Anxiety disorder, unspecified; F32.9 Major depressive disorder, single episode, unspecified; F17.210 Nicotine dependence, cigarettes, uncomplicated
CPT/HCPCS: 81003; 81015; 81025; 96372; 99283; J1885

== ENCOUNTER 2020-08-12 13:19 | Emergency (ER) | payer OTHER ==
[2020-08-12 13:39] LABS: Bilirubin Negative (Negative); Blood, Urine Negative (Negative); Clarity Clear (Clear); Glucose, Urine (Dipstick) Negative (Negative); Ketone, Urine Negative (Negative); Leukocyte Negative (Negative); Nitrite Negative (Negative); Protein, Urine (Dipstick) Negative (Neg-Trace); Urobilinogen 0.2 mg/dL (Less than 2)
[2020-08-12 14:01] LABS: Hemoglobin 17.2 g/dL (12.0-16.0); Mean Corpuscular HGB CONC 32.9 g/dL (32.0-36.0); Mean Corpuscular Hemoglobin 29.8 pg (27.0-31.0); Mean Corpuscular Volume 90.6 fL (78.0-98.0); Mean Platelet Volume 6.8 fL (7.4-10.4); Platelet Count 312 thou/uL (130-400); RBC Distribution Width 12.6 % (11.5-14.5); Red Blood Cell (RBC) Count 5.77 mill/uL (4.20-5.40); White Blood Cell (WBC) Count 7.9 thou/uL (4.8-10.8)
[2020-08-12 14:19] LABS: ALT (SGPT) 22 U/L (8-55); AST (SGOT) 31 U/L (5-34); Albumin 4.3 g/dL (3.5-5.0); Alkaline Phosphatase 94 U/L (40-110); Anion Gap 13 mmol/L (10-20); BUN (Urea Nitrogen) 10 mg/dL (7.0-18.7); Bilirubin, Total 0.3 mg/dL (0.2-1.2); Calc. Creatinine Clearance 0 mL/min (70-130); Calcium 11.5 mg/dL (7.8-10.44); Carbon Dioxide 28 mmol/L (22-29); Chloride 105 mmol/L (98-107); Globulin 3.1 g/dL (2.4-3.5); Glucose 87 mg/dL (70-105); Potassium 4.1 mmol/L (3.5-5.1); Protein, Total 7.4 g/dL (6.0-8.3); Sodium 142 mmol/L (136-145)
[2020-08-12 14:26] LABS: Band 5 % (5-11); Eosinophils 4 % (0-10); Lymphocytes 23 % (21-51); MDiff Complete? YES; Monocytes 4 % (0-10); Neutrophil 55 % (42-75); Platelet Morphology Comment Appears Adequate; Reactive Lymphocytes 9 % (0-10)
--- NOTE | 2020-08-12 17:09 | RAD ---
PORTABLE CHEST: 08/12/20 An AP portable film at 1401 is compared with an 04/19/20 study. The heart is enlarged but no different than before. There is no vascular congestion or edema. the niki gs are clear. IMPRESSION: Mild cardiomegaly, unchanged from earlier. POS: HOME
[2020-08-13 02:59] LABS: SARS-CoV-2 MS2 Positive; SARS-CoV-2 N Gene Negative; SARS-CoV-2 S Gene Negative; SARS-CoV-2 by NAA Not Detected (NotDetected); SARS-CoV-2 orf1ab Negative
== END 2020-08-12 14:55 | disposition home or self-care (01) ==
LOC: BURERS 13:19
DX: J06.9 Acute upper respiratory infection, unspecified (principal); Z20.828 Contact with and (suspected) exposure to other viral communicable diseases; K21.9 Gastro-esophageal reflux disease without esophagitis; J45.909 Unspecified asthma, uncomplicated; I10 Essential (primary) hypertension; Z79.899 Other long term (current) drug therapy
CPT/HCPCS: 36415; 71045; 80053; 81003; 83880; 84484; 85025; 87635; 93005; 94760; U0003

== ENCOUNTER 2020-10-21 12:03 | Emergency (ER) | payer OTHER ==
[2020-10-21 13:21] LABS: #Basophils 0.1 thou/uL (0.0-0.2); #Eosinphils 0.1 thou/uL (0.0-0.7); #Lymphocytes 2.1 thou/uL (1.20-3.40); #Monocytes 0.6 thou/uL (0.11-0.59); %Basophils 0.8 % (0.0-1.0); %Eosinophils 0.5 % (0.0-10.0); %Lymphocytes 21.3 % (21.0-51.0); %Monocytes 6.5 % (0.0-10.0); %Neutrophils 70.9 % (42.0-75.0); Hemoglobin 17.4 g/dL (12.0-16.0); Mean Corpuscular HGB CONC 32.9 g/dL (32.0-36.0); Mean Corpuscular Hemoglobin 29.6 pg (27.0-31.0); Mean Platelet Volume 7.3 fL (7.4-10.4); Platelet Count 297 thou/uL (130-400); Red Blood Cell (RBC) Count 5.87 mill/uL (4.20-5.40); White Blood Cell (WBC) Count 9.9 thou/uL (4.8-10.8)
[2020-10-21 13:33] LABS: ALT (SGPT) 19 U/L (8-55); AST (SGOT) 14 U/L (5-34); Albumin 4.1 g/dL (3.5-5.0); Alkaline Phosphatase 88 U/L (40-110); Anion Gap 13 mmol/L (10-20); BUN (Urea Nitrogen) 12 mg/dL (7.0-18.7); Bilirubin, Total 0.4 mg/dL (0.2-1.2); Calc. Creatinine Clearance 0 mL/min (70-130); Calcium 11.3 mg/dL (7.8-10.44); Carbon Dioxide 24 mmol/L (22-29); Chloride 110 mmol/L (98-107); Globulin 2.6 g/dL (2.4-3.5); Glucose 88 mg/dL (70-105); Lipase 28 U/L (8-78); Potassium 3.8 mmol/L (3.5-5.1); Protein, Total 6.7 g/dL (6.0-8.3); Sodium 143 mmol/L (136-145)
[2020-10-21] MEDS ORDERED: Acetaminophen 500 MG TAB ONE (13:37)
[2020-10-21] MEDS ORDERED: Aspirin Chewable 81 MG TAB ONE (13:37)
--- NOTE | 2020-10-21 14:57 | RAD ---
PORTABLE CHEST: Date: 10/21/2020 An AP portable film at 1326 hours is compared with the 10/11/2020 study. There has been no adverse interval change. The heart is normal in size and the lungs are clear. No in filtrate or effusion seen. There is no vascular congestion or edema. IMPRESSION: No acute thoracic findings. POS: HOME
--- NOTE | 2020-10-21 14:58 | RAD ---
LEFT SHOULDER 3 VIEWS: Date: 10/21/2020 No fracture, dislocation, or AC joint widening seen. No periarticular calcifications are seen. IMPRESSION: No acute findings. POS: HOME
== END 2020-10-21 14:02 | disposition home or self-care (01) ==
LOC: BURERS 12:03
DX: R07.89 Other chest pain (principal); M25.512 Pain in left shoulder; I10 Essential (primary) hypertension; Z79.899 Other long term (current) drug therapy
CPT/HCPCS: 36415; 71045; 80053; 83690; 83880; 84484; 85025; 93005

== ENCOUNTER 2021-05-10 14:45 | Emergency (ER) | payer OTHER ==
[2021-05-10 15:43] LABS: Hemoglobin 16.5 g/dL (12.0-16.0); Mean Corpuscular HGB CONC 31.9 g/dL (32.0-36.0); Mean Corpuscular Hemoglobin 29.5 pg (27.0-31.0); Mean Corpuscular Volume 92.4 fL (78.0-98.0); Mean Platelet Volume 7.2 fL (7.4-10.4); Platelet Count 260 thou/uL (130-400); RBC Distribution Width 13.6 % (11.5-14.5); Red Blood Cell (RBC) Count 5.59 mill/uL (4.20-5.40); White Blood Cell (WBC) Count 7.6 thou/uL (4.8-10.8)
[2021-05-10] MEDS ORDERED: Dicyclomine 20 MG TAB ONE (15:44)
[2021-05-10 15:46] LABS: Bilirubin Negative (Negative); Blood, Urine Negative (Negative); Clarity Clear (Clear); Glucose, Urine (Dipstick) Negative (Negative); Ketone, Urine Negative (Negative); Leukocyte Negative (Negative); Nitrite Negative (Negative); Protein, Urine (Dipstick) Negative (Neg-Trace); Specific Gravity, Urine 1.025 (1.005-1.030); Urobilinogen 0.2 mg/dL (Less than 2)
[2021-05-10 15:53] LABS: ALT (SGPT) 16 U/L (8-55); AST (SGOT) 16 U/L (5-34); Alkaline Phosphatase 96 U/L (40-110); Anion Gap 14 mmol/L (10-20); BUN (Urea Nitrogen) 12 mg/dL (9.8-20.1); Bilirubin, Total 0.3 mg/dL (0.2-1.2); Calc. Creatinine Clearance 0 mL/min (70-130); Calcium 11.2 mg/dL (7.8-10.44); Carbon Dioxide 24 mmol/L (22-29); Chloride 108 mmol/L (98-107); Globulin 3.1 g/dL (2.4-3.5); Glucose 81 mg/dL (70-105); Potassium 4.5 mmol/L (3.5-5.1); Protein, Total 7.1 g/dL (6.0-8.3); Sodium 141 mmol/L (136-145)
[2021-05-10 16:01] LABS: Band 9 % (5-11); Lymphocytes 31 % (21-51); MDiff Complete? YES; Monocytes 6 % (0-10); Neutrophil 45 % (42-75); Reactive Lymphocytes 8 % (0-10); Reflex for Review?? YES
[2021-05-10 16:05] LABS: Amphetamine Not Detected (NotDetected); Barbiturates Screen Not Detected (NotDetected); Benzodiazepine Screen Not Detected (NotDetected); Cocaine Metabolite Screen Detected (NotDetected); Medtox Control Line Valid? VALID (VALID); Methadone Not Detected (NotDetected); Methamphetamine Not Detected (NotDetected); Opiate Screen Not Detected (NotDetected); Oxycodone Screen Not Detected (NotDetected); Phencyclidine (PCP) Not Detected (NotDetected); THC/Cannabinoid Screen Not Detected (NotDetected); Tricyclic Screen Detected (NotDetected)
[2021-05-11 23:01] LABS: SARS-CoV-2 PCR by NAA Not Detected (NotDetected)
== END 2021-05-10 16:49 | disposition home or self-care (01) ==
LOC: BURERS 14:45
DX: E86.0 Dehydration (principal); R05 Cough; R11.2 Nausea with vomiting, unspecified; R19.7 Diarrhea, unspecified; Z20.822 Contact with and (suspected) exposure to COVID-19; I10 Essential (primary) hypertension; M19.90 Unspecified osteoarthritis, unspecified site; F17.210 Nicotine dependence, cigarettes, uncomplicated
CPT/HCPCS: 36415; 80053; 80306; 81003; 85025; 85060; 99406; U0003; U0005

== ENCOUNTER 2021-06-08 13:01 | Emergency (ER) | payer OTHER ==
[2021-06-08] MEDS ORDERED: Ketorolac Tromethamine 30 MG/ML VIAL ONE ×2 (13:10→13:16)
[2021-06-08] MEDS ORDERED: Bacitracin 1 PK ONE ×2 (13:10→13:16)
== END 2021-06-08 13:46 | disposition home or self-care (01) ==
LOC: BURERS 13:01
DX: N76.4 Abscess of vulva (principal); N76.2 Acute vulvitis; I10 Essential (primary) hypertension; F17.210 Nicotine dependence, cigarettes, uncomplicated
CPT/HCPCS: 56405; 87480; 87510; 87660; 96372; J1885

== ENCOUNTER 2021-07-15 08:57 | Emergency (ER) | payer OTHER ==
[2021-07-15] MEDS ORDERED: Acetaminophen 500 MG TAB ONE (09:39)
[2021-07-15 09:42] LABS: Bilirubin Negative (Negative); Blood, Urine Trace (Negative); Clarity Clear (Clear); Glucose, Urine (Dipstick) Negative (Negative); Ketone, Urine Negative (Negative); Leukocyte Negative (Negative); Nitrite Negative (Negative); Protein, Urine (Dipstick) Negative (Neg-Trace); Urobilinogen 0.2 mg/dL (Less than 2)
[2021-07-15 09:50] LABS: Bacteria/HPF Rare-Few HPF (None Seen); RBC/HPF 0-3 HPF (0-3); Squamous Epithelial 0-3 HPF (0-3)
[2021-07-15] MEDS ORDERED: Ketorolac Tromethamine 30 MG/ML VIAL ONE (11:19)
== END 2021-07-15 11:29 | disposition home or self-care (01) ==
LOC: BURERS 08:57
DX: N32.89 Other specified disorders of bladder (principal); R10.9 Unspecified abdominal pain; I10 Essential (primary) hypertension; M19.90 Unspecified osteoarthritis, unspecified site; F17.210 Nicotine dependence, cigarettes, uncomplicated
CPT/HCPCS: 74176; 81003; 81015; 87086; 96374; J1885

== ENCOUNTER 2022-01-12 12:35 | Emergency (ER) | payer OTHER ==
[2022-01-12] MEDS ORDERED: Acetaminophen 500 MG TAB ONE (13:09)
[2022-01-12 13:14] LABS: Bilirubin Negative (Negative); Blood, Urine Negative (Negative); Clarity Clear (Clear); Glucose, Urine (Dipstick) Negative (Negative); Ketone, Urine Negative (Negative); Leukocyte Negative (Negative); Nitrite Negative (Negative); Protein, Urine (Dipstick) Negative (Neg-Trace); Specific Gravity, Urine 1.015 (1.005-1.030); Urobilinogen 0.2 mg/dL (Less than 2)
[2022-01-12 13:22] LABS: ALT (SGPT) 20 U/L (8-55); AST (SGOT) 17 U/L (5-34); Albumin 4.5 g/dL (3.5-5.0); Alkaline Phosphatase 102 U/L (40-110); Anion Gap 14 mmol/L (10-20); BUN (Urea Nitrogen) 5 mg/dL (9.8-20.1); Bilirubin, Total 0.5 mg/dL (0.2-1.2); Calc. Creatinine Clearance 0 mL/min (70-130); Calcium 10.9 mg/dL (7.8-10.44); Carbon Dioxide 28 mmol/L (22-29); Chloride 102 mmol/L (98-107); Globulin 3.2 g/dL (2.4-3.5); Glucose 92 mg/dL (70-105); Potassium 3.2 mmol/L (3.5-5.1); Protein, Total 7.7 g/dL (6.0-8.3); Sodium 141 mmol/L (136-145)
[2022-01-12] MEDS ORDERED: Potassium Chloride 20 MEQ TAB ONE (13:26)
[2022-01-12 13:32] LABS: Hemoglobin 16.7 g/dL (12.0-16.0); Mean Corpuscular HGB CONC 33.7 g/dL (32.0-36.0); Mean Corpuscular Hemoglobin 30.1 pg (27.0-31.0); Mean Corpuscular Volume 89.1 fL (78.0-98.0); Mean Platelet Volume 6.9 fL (7.4-10.4); Platelet Count 264 thou/uL (130-400); RBC Distribution Width 13.1 % (11.5-14.5); Red Blood Cell (RBC) Count 5.54 mill/uL (4.20-5.40); White Blood Cell (WBC) Count 10.1 thou/uL (4.8-10.8)
[2022-01-12 13:35] LABS: Amphetamine Not Detected (NotDetected); Barbiturates Screen Not Detected (NotDetected); Benzodiazepine Screen Not Detected (NotDetected); Cocaine Metabolite Screen Detected (NotDetected); Medtox Control Line Valid? VALID (VALID); Methadone Not Detected (NotDetected); Methamphetamine Not Detected (NotDetected); Opiate Screen Not Detected (NotDetected); Oxycodone Screen Not Detected (NotDetected); Phencyclidine (PCP) Not Detected (NotDetected); THC/Cannabinoid Screen Not Detected (NotDetected); Tricyclic Screen Not Detected (NotDetected)
[2022-01-12 13:40] LABS: Lymphocytes 22 % (21-51); MDiff Complete? YES; Monocytes 5 % (0-10); Neutrophil 73 % (42-75); Platelet Morphology Comment Appears Adequate; RBC Morphology Normal
== END 2022-01-12 13:54 | disposition home or self-care (01) ==
LOC: BURERS 12:35
DX: I10 Essential (primary) hypertension (principal); F14.10 Cocaine abuse, uncomplicated; M19.90 Unspecified osteoarthritis, unspecified site; F17.210 Nicotine dependence, cigarettes, uncomplicated
CPT/HCPCS: 71045; 80053; 80306; 81003; 84484; 85025; 93005; 94760

== ENCOUNTER 2022-04-20 14:38 | Emergency (ER) | payer OTHER ==
[2022-04-20] MEDS ORDERED: Amlodipine 5 MG TAB ONE (15:41)
[2022-04-20] MEDS ORDERED: Hydrochlorothiazide 25 MG TAB ONE (15:41)
[2022-04-20] MEDS ORDERED: predniSONE 20 MG TAB ONE ×2 (15:58→15:59)
== END 2022-04-20 16:07 | disposition home or self-care (01) ==
LOC: BURERS 14:38
DX: I10 Essential (primary) hypertension (principal); M19.90 Unspecified osteoarthritis, unspecified site; F17.210 Nicotine dependence, cigarettes, uncomplicated
CPT/HCPCS: 71045; 94640; J7512; J7620

== ENCOUNTER 2022-09-21 15:07 | Emergency (ER) | payer OTHER ==
[2022-09-21] MEDS ORDERED: HYDROcodone/Acetaminophen 5/325 mg Tablet ONE (16:10)
== END 2022-09-21 16:22 | disposition home or self-care (01) ==
LOC: BURERS 15:07
DX: S43.402A Unspecified sprain of left shoulder joint, initial encounter (principal); I10 Essential (primary) hypertension; F17.210 Nicotine dependence, cigarettes, uncomplicated; X50.1XXA Overexertion from prolonged static or awkward postures, initial encounter

== ENCOUNTER 2024-01-09 19:10 | Emergency (ER) | payer OTHER ==
[2024-01-09 19:56] LABS: #Basophils 0.1 thou/uL (0.0-0.2); #Eosinphils 0.1 thou/uL (0.0-0.7); #Monocytes 0.6 thou/uL (0.11-0.59); #Neutrophils 4.2 thou/uL (1.40-6.50); %Basophils 0.9 % (0.0-1.0); %Eosinophils 0.9 % (0.0-10.0); %Lymphocytes 29.1 % (21.0-51.0); %Monocytes 8.7 % (0.0-10.0); %Neutrophils 60.4 % (42.0-75.0); Hematocrit 50.3 % (36.0-47.0); Hemoglobin 16.4 g/dL (12.0-16.0); Mean Corpuscular HGB CONC 32.6 g/dL (32.0-36.0); Mean Corpuscular Hemoglobin 28.3 pg (27.0-31.0); Mean Corpuscular Volume 86.7 fl (78.0-98.0); Mean Platelet Volume 6.5 fL (7.4-10.4); Platelet Count 278 10x3/uL (130-400); RBC Distribution Width 12.9 % (11.5-14.5)
[2024-01-09 19:59] LABS: Bilirubin Negative (Negative); Blood, Urine Negative (Negative); Clarity Clear (Clear); Glucose, Urine (Dipstick) Negative (Negative); Ketone, Urine Negative (Negative); Leukocyte Negative (Negative); Nitrite Negative (Negative); Protein, Urine (Dipstick) Negative (Neg-Trace)
[2024-01-09 20:10] LABS: Amphetamine Not Detected (NotDetected); Bacteria/HPF 1+ HPF (None Seen); Barbiturates Screen Not Detected (NotDetected); Benzodiazepine Screen Not Detected (NotDetected); CAUTI Indications for Culture Dysuria,urgency,freq; Cocaine Metabolite Screen Detected (NotDetected); Methadone Not Detected (NotDetected); Methamphetamine Not Detected (NotDetected); Opiate Screen Not Detected (NotDetected); Oxycodone Screen Not Detected (NotDetected); Phencyclidine (PCP) Not Detected (NotDetected); RBC/HPF 0-3 HPF (0-3); Squamous Epithelial 0-3 HPF (0-3); THC/Cannabinoid Screen Not Detected (NotDetected); Tricyclic Screen Not Detected (NotDetected); WBC/HPF 0-3 HPF (0-3)
[2024-01-09 20:11] LABS: Urine Culture Reflex No No
[2024-01-09 20:15] LABS: ALT (SGPT) 14 U/L (8-55); AST (SGOT) 11 U/L (5-34); Albumin 4.1 g/dL (3.5-5.0); Alkaline Phosphatase 108 U/L (40-110); Anion Gap 10 mmol/L (10-20); BUN (Urea Nitrogen) 15 mg/dL (9.8-20.1); Bilirubin, Total 0.4 mg/dL (0.2-1.2); Calc. Creatinine Clearance 0 mL/min (70-130); Calcium 11.7 mg/dL (7.8-10.44); Carbon Dioxide 24 mmol/L (22-29); Chloride 114 mmol/L (98-107); Estimated GFR 95; Globulin 2.7 g/dL (2.4-3.5); Glucose 95 mg/dL (70-105); Potassium 3.8 mmol/L (3.5-5.1); Protein, Total 6.8 g/dL (6.0-8.3); Sodium 144 mmol/L (136-145)
[2024-01-09 20:16] LABS: Acetaminophen Less than 10 mcg/mL (10.0-30.0); Alcohol Less than 10.0 mg/dL (Less than 10); Lipase 43 U/L (8-78); Salicylate Less than 8.0 mg/dL (15.0-30.0)
== END 2024-01-09 20:50 | disposition home or self-care (01) ==
LOC: BURERS 19:10
DX: K29.00 Acute gastritis without bleeding (principal); F10.10 Alcohol abuse, uncomplicated; R11.2 Nausea with vomiting, unspecified; I10 Essential (primary) hypertension; Z87.891 Personal history of nicotine dependence; Z79.899 Other long term (current) drug therapy
CPT/HCPCS: 36415; 74176; 80053; 80306; 80307; 81001; 83690; 85025; 96360

== ENCOUNTER 2024-04-03 12:48 | Emergency (ER) | payer OTHER ==
[2024-04-03 13:20] LABS: Eosinophils 2 % (0-10); Hematocrit 46.5 % (36.0-47.0); Hemoglobin 15.4 g/dL (12.0-16.0); Lymphocytes 40 % (21-51); MDiff Complete? YES; Mean Corpuscular HGB CONC 33.2 g/dL (32.0-36.0); Mean Corpuscular Hemoglobin 28.5 pg (27.0-31.0); Mean Platelet Volume 6.6 fL (7.4-10.4); Monocytes 8 % (0-10); Neutrophil 47 % (42-75); Platelet Count 188 10x3/uL (130-400); RBC Distribution Width 12.7 % (11.5-14.5); White Blood Cell (WBC) Count 4.7 10x3/uL (4.8-10.8)
[2024-04-03] MEDS ORDERED: Ketorolac Tromethamine 30 MG (1 mL) VIAL ONE (13:30)
[2024-04-03 13:33] LABS: ALT (SGPT) 16 U/L (8-55); AST (SGOT) 15 U/L (5-34); Albumin 3.7 g/dL (3.5-5.0); Alkaline Phosphatase 101 U/L (40-110); Anion Gap 10 mmol/L (10-20); BUN (Urea Nitrogen) 11 mg/dL (9.8-20.1); Bilirubin, Total 0.2 mg/dL (0.2-1.2); Calc. Creatinine Clearance 0 mL/min (70-130); Calcium 10.4 mg/dL (7.8-10.44); Carbon Dioxide 23 mmol/L (22-29); Chloride 111 mmol/L (98-107); Estimated GFR 101; Globulin 2.5 g/dL (2.4-3.5); Glucose 90 mg/dL (70-105); Potassium 3.3 mmol/L (3.5-5.1); Protein, Total 6.2 g/dL (6.0-8.3); Sodium 141 mmol/L (136-145)
[2024-04-03 13:39] LABS: Bilirubin Negative (Negative); Blood, Urine Negative (Negative); Clarity Clear (Clear); Glucose, Urine (Dipstick) Negative (Negative); Ketone, Urine Negative (Negative); Leukocyte Negative (Negative); Nitrite Negative (Negative); Protein, Urine (Dipstick) Negative (Neg-Trace); Urobilinogen 0.2 mg/dL (Less than 2); pH, Urine 7.5 (5.0-9.0)
[2024-04-03 13:49] LABS: Bacteria/HPF Rare-Few HPF (None Seen); CAUTI Indications for Culture Dysuria,urgency,freq; RBC/HPF None Seen HPF (0-3); Squamous Epithelial 0-3 HPF (0-3); WBC/HPF None Seen HPF (0-3)
[2024-04-03 13:50] LABS: Urine Culture Reflex No No
== END 2024-04-03 14:10 | disposition home or self-care (01) ==
LOC: BURERS 12:48
DX: M54.50 Low back pain, unspecified (principal); I10 Essential (primary) hypertension; F17.210 Nicotine dependence, cigarettes, uncomplicated
CPT/HCPCS: 36415; 80053; 81001; 85025; 96374; J1885

== ENCOUNTER 2025-06-21 09:20 | Emergency (ER) | payer MEDICAID | END 2025-06-21 10:02 | disposition home or self-care (01) | LOC: BURERS 09:20 | DX: R21 Rash and other nonspecific skin eruption (principal); I10 Essential (primary) hypertension; R11.0 Nausea; F17.290 Nicotine dependence, other tobacco product, uncomplicated; Z79.899 Other long term (current) drug therapy | CPT/HCPCS: 99282 ==